=== PATIENT | male | born 1950 | race Caucasian/White ===

== ENCOUNTER 2017-03-08 08:10 | Outpatient (CLI) | payer OTHER ==
[2015-01-04 09:14] VITALS: BP 147/81
[2017-03-08 21:41] LABS: TOTAL PROTEIN 6.8 g/dL (6.0-8.5)
== END 2017-03-08 08:11 ==
LOC: LAB 08:10
PROVIDERS: ATTEND Family Medicine
DX: Z11.59 Encounter for screening for other viral diseases (principal); E11.9 Type 2 diabetes mellitus without complications
CPT/HCPCS: 36415; 80053; 80061; 82043; 83036; 86803

== ENCOUNTER 2017-06-09 12:50 | Emergency (ER) | payer OTHER ==
[2017-06-09 14:21] VITALS: BP 130/68
--- NOTE | 2017-06-09 14:23 | ED Physician Documentation ---
Lower Extremity Problem - HISTORIAN Historian: patient - HPI Stated Complaint: Left Foot Pain Chief Complaint: Lower Extremity Problem Location of Injury: R foot Timing: worse Further Comments: yes (66 year old male patient presents with right foot pain. States he has a callus that has cracked. Reports previous hospitalization for staph infection in foot.) - ROS CONST: no problems MS/SKIN/LYMPH: none CVS/RESP: none GI/: none EYES/ENT: none NERUO/PSYCH: denies: headache - PAST HX Past History: none PE Risk Factors: hypertension Other History: diabetes Type 2 Allergies/Adverse Reactions: Allergies Allergy/AdvReac Type Severity Reaction Status Date / Time No Known Drug Allergies Allergy Verified 01/03/15 08:03 Home Medications: Ambulatory Orders Medication Instructions Recorded Diclofenac Sodium [Voltaren] 50 mg PO DAILY 06/09/17 Doxycycline Monohydrate 100 mg PO BID #20 tablet 06/09/17 Mupirocin [Bactroban] 1 appl TP BID #1 tube 06/09/17 - SOCIAL HX Smoking History: non-smoker - FAMILY HX Family History: denies: none - VITAL SIGNS Vital Signs: Vital Signs Temp Pulse Resp BP Pulse Ox 98.1 F 70 18 130/68 96 06/09/17 12:50 06/09/17 14:20 06/09/17 14:20 06/09/17 14:20 06/09/17 14:20 - REVIEWED ASSESSMENTS Nursing Assessment Reviewed: Yes Vitals Reviewed: Yes Progress - Progress Progress: Right foot with nail thickening noted. No warmth to palpation of edematous area of right foot; patient denies history of gout. Does not see the circuit walker. No micro reports from previous hospitalization. Reviewed xray results with patient. Will start doxycycline po bid and bactroban ointment. Referral to Dr Causey. Will not use bactrim DS as patient is on lisinopril. Strongly encouraged close follow up with PCP due to history. ED Results Lab/Radiology - Lab Results Lab Results: Lab Results 06/09/17 13:20 Uric Acid 4.5 mg/dL mg/dL (3.5-8.5) - Radiology Radiology Impressions: Examination: Plain film foot History: Discomfort Findings: 3 views of the foot demonstrates generalized osteopenia. Articular degenerative changes. Undersurface of the 5th metatarsal demonstrates some cortical thickening. No fracture line. Inferior posterior calcaneal spurs. No gross soft tissue abnormality. No soft tissue foreign body. Impression: Osteopenia. Degenerative changes. Cortical thickening 5th metatarsal. No acute appearing fracture. If there is suspicion for osteomyelitis , can be further assessed with MRI if clinically warranted. Electronically signed on Jun 09, 2017 1:48:58 PM CDT by: Primitivo Dumont - Orders Orders: ED Orders Category Date Time Status FOOT 3 VIEWS OR MORE [RAD] Stat Exams 06/09/17 Ordered URIC ACID Stat Lab 06/09/17 13:20 Completed Lower Extremity Problem - EXAM General Appearance: mild distress Legs: bilateral: non-tender, normal inspection, normal range of motion, no evidence of injury Ankle: bilateral: non-tender, normal inspection, normal range of motion, no evidence of injury Foot: right foot: bone tenderness, deformity (Right 5th metatarsophalangeal joint with edema, ecchymosis noted on planter aspect of foot), swelling ( lateral foot, distal 5th metatarsal area), other (Serous drainage for 3mm laceration, dorsal aspect of right 5th metatarsophalangeal joint. Tender to palpation. ), bilateral foot: normal range of motion Neuro/Tendon: normal sensation, normal motor functions, normal tendon functions , no evidence tendon injury EENT: eye inspection normal, JOANNE RESPIRATORY: no resp distress CVS: reg rate & rhythm JOINT: nml ROM, painful (to bear weight on right foot) VASCULAR: no vascular compromise, pulses full/equal NEURO/PSYCH: oriented X3, motor nml, sensation nml, mood/affect nml SKIN: warm/dry, normal color Discharge Clincal Impression: Callus Cellulitis Qualifiers: Site of cellulitis: other site Qualified Code(s): L03.818 - Cellulitis of other sites Prescriptions: Doxycycline Monohydrate 100 mg PO BID #20 tablet Mupirocin [Bactroban] 1 appl TP BID #1 tube Referrals: Pa Watts MD [Primary Care Provider] - 2 Days Additional Instructions: To remove your dressing, gently pull it off. If needed, you can dampen it with water then gently pull it off. Clean the wound twice a day with hibiclens and rinse with water clean away any scabbed area Apply thin coat of antibiotic ointment after cleaning the wound. Cover with non-adherent bandage if able. Follow up with your primary care doctor for a wound recheck on Sunday Recommend podiatry - Dr. Causey is at [facility] on Jun 19 Condition: Stable Disposition: HOME, SELF-CARE Decision to Admit: NO Decision Time: 14:15
--- NOTE | 2017-06-09 18:51 | Diagnostic Imaging Report ---
PHILLIP PEREIRA (BISHOP) - ER [facility] [address] [address] Report Submission Date: Jun 09, 2017 1:48:58 PM CDT Patient Study Name: PARVEZ TOLENTINO Date: Jun 09, 2017 1:29:29 PM CDT Modality Type: CR Gender: M Description: LOWER EXTREMITY : 54 Institution: [facility] Physician: PHILLIP PEREIRA (BISHOP) - ER Examination: Plain film foot History: Discomfort Findings: 3 views of the foot demonstrates generalized osteopenia. Articular degenerative changes. Undersurface of the 5th metatarsal demonstrates some cortical thickening. No fracture line. Inferior posterior calcaneal spurs. No gross soft tissue abnormality. No soft tissue foreign body. Impression: Osteopenia. Degenerative changes. Cortical thickening 5th metatarsal. No acute appearing fracture. If there is suspicion for osteomyelitis , can be further assessed with MRI if clinically warranted. Electronically signed on Jun 09, 2017 1:48:58 PM CDT by: Primitivo OCHOA
== END 2017-06-09 14:20 | disposition home or self-care (01) ==
LOC: ED 12:50
DX: L03.818 Cellulitis of other sites (principal); L84 Corns and callosities
CPT/HCPCS: 73630; 84550; 99283

== ENCOUNTER 2017-07-10 14:15 | Outpatient (CLI) | payer OTHER | END 2017-07-10 14:16 | LOC: POD 14:15 | PROVIDERS: ATTEND Podiatrist | DX: E11.42 Type 2 diabetes mellitus with diabetic polyneuropathy (principal); B35.1 Tinea unguium; L89.891 Pressure ulcer of other site, stage 1 | CPT/HCPCS: 99213 ==

== ENCOUNTER 2017-10-09 13:26 | Outpatient (CLI) | payer MEDICARE, OTHER | END 2017-10-09 13:27 | LOC: POD 13:26 | PROVIDERS: ATTEND Podiatrist | DX: B35.1 Tinea unguium (principal); M79.674 Pain in right toe(s); M79.675 Pain in left toe(s) | CPT/HCPCS: 11721; G0463 ==

== ENCOUNTER 2018-01-01 13:33 | Outpatient (CLI) | payer MEDICARE, OTHER | END 2018-01-01 13:34 | LOC: POD 13:33 | PROVIDERS: ATTEND Podiatrist | DX: B35.1 Tinea unguium (principal); M79.674 Pain in right toe(s); M79.675 Pain in left toe(s) | CPT/HCPCS: 11721; G0463 ==

== ENCOUNTER 2018-04-12 13:24 | Outpatient (CLI) | payer MEDICARE, OTHER | END 2018-04-12 13:25 | LOC: POD 13:24 | PROVIDERS: ATTEND Podiatrist | DX: B35.1 Tinea unguium (principal); M79.674 Pain in right toe(s); M79.675 Pain in left toe(s) | CPT/HCPCS: 11721; G0463 ==

== ENCOUNTER 2018-06-19 08:37 | Outpatient (CLI) | payer MEDICARE, OTHER ==
[2018-06-19 10:32] LABS: eGFR (Non-African) > 60
== END 2018-06-19 08:40 ==
LOC: LAB 08:37
PROVIDERS: ATTEND Family Medicine
DX: E11.9 Type 2 diabetes mellitus without complications (principal); E78.00 Pure hypercholesterolemia, unspecified
CPT/HCPCS: 36415; 80053; 80061; 82043; 83036

== ENCOUNTER 2018-08-31 16:23 | Emergency (ER) | payer MEDICARE, OTHER ==
--- NOTE | 2018-08-31 17:32 | ED Physician Documentation ---
Foot Injury - HISTORIAN Historian: patient - HPI Stated Complaint: right foot redness Chief Complaint: Foot Injury Additional Information: diabetic foot ulcer std w/callous trimmed now infected--[id number]=1.1 onset 2 mo ago after debrided callous. rt lat foot base 5th digit. now surrounding cellulitis Severity: moderate Associated Symptoms:: swelling. denies: numbness distally, snapping sensation, popping sensation, unable to bear weight (works [employer] so on feet all shift) Modifying Factors:: other (pts foot quite wide has callous on lt foot similar in nature but not infected) - ROS CONST: no problems CVS/RESP: none NEURO: denies: headache, head injury MS/SKIN/LYMPH: none - PAST HX Past History: diabetes Type 2, other (htn gerd) Immunizations: UTD Allergies/Adverse Reactions: Allergies Allergy/AdvReac Type Severity Reaction Status Date / Time No Known Drug Allergies Allergy Verified 09/03/18 13:02 Home Medications: Ambulatory Orders Medication Instructions Recorded Cephalexin [Keflex] 500 mg PO QID #40 capsule 08/31/18 Mupirocin 2% Oint. [Bactroban] 1 appl TP BID #1 tube 09/03/18 Sulfamethoxazole/Trimethoprim 1 each PO BID #20 tab 09/03/18 [Bactrim Ds] - SOCIAL HX Smoking History: non-smoker Alcohol Use: none Drug Use: none - FAMILY HX Family History: no significant history - VITAL SIGNS Vital Signs: Vital Signs Temp Pulse Resp BP Pulse Ox 98.6 F 92 H 19 146/69 98 08/31/18 16:23 08/31/18 16:23 08/31/18 16:23 08/31/18 16:23 08/31/18 16:23 - REVIEWED ASSESSMENTS Nursing Assessment Reviewed: Yes Vitals Reviewed: Yes Foot Injury Physical Exam - Physical Exam General Appearance: mild distress, moderate distress Gait: limited by pain (slightly) Neuro: sensation nml, motor nml. No: digital nerve deficit Tendons: tendon function nml Leg/Knee/Thigh: uninjured above ankle, soft-tissue tenderness. No: swelling Skin: intact, warm Head/ENT: nml inspection Resp/CVS: chest non-tender, breath sounds nml, heart sounds nml, lungs clear, reg. rate & rhythm Abdomen: non-tender Discharge Clincal Impression: diabetic foot ulcer Prescriptions: Cephalexin [Keflex] 500 mg PO QID #40 capsule Referrals: Pa Watts MD [Primary Care Provider] - 2 Days Comments: to see wound care specialists for f/u Condition: Good Disposition: 01 HOME, SELF-CARE Decision to Admit: NO Decision Time: 17:25
[2018-08-31 17:33] VITALS: BP 154/71
== END 2018-08-31 17:31 | disposition home or self-care (01) ==
LOC: ED 16:23
DX: E11.621 Type 2 diabetes mellitus with foot ulcer (principal); L97.519 Non-pressure chronic ulcer of other part of right foot with unspecified severity
CPT/HCPCS: 99281; 99282

== ENCOUNTER 2018-09-03 12:29 | Emergency (ER) | payer MEDICARE, OTHER ==
[2018-09-03 13:01] VITALS: BP 118/76
--- NOTE | 2018-09-03 13:07 | ED Physician Documentation ---
General Adult - HISTORIAN Historian: patient - HPI Stated Complaint: Foot pain Chief Complaint: General Adult Further Comments: yes (67 year old male patient presents with complaint of worsening foot wound and redness going up right leg. Patient was seen in ER Sunday and started on Keflex. He was instructed to cleanse with betadine and keep covered. Patient orginally had nails trimmed and callus trimmed on 07/[address] Hickman in the clinic.) - ROS CONST: no problems EYES/ENT: none CVS/RESP: none GI/: none MS/SKIN/LYMPH: none - PAST HX Past History: other (Previous wound to right 2nd toe - deformity) Other History: diabetes Type 2 Allergies/Adverse Reactions: Allergies Allergy/AdvReac Type Severity Reaction Status Date / Time No Known Drug Allergies Allergy Verified 09/03/18 13:02 Home Medications: Ambulatory Orders Medication Instructions Recorded Cephalexin [Keflex] 500 mg PO QID #40 capsule 08/31/18 Mupirocin [Bactroban] 1 appl TP BID #1 tube 09/03/18 Sulfamethoxazole/Trimethoprim 1 each PO BID #20 tab 09/03/18 [Bactrim Ds] - SOCIAL HX Smoking History: non-smoker - FAMILY HX Family History: No - VITAL SIGNS Vital Signs: Vital Signs Temp Pulse Resp BP Pulse Ox 79 15 118/76 95 09/03/18 12:30 09/03/18 12:30 09/03/18 12:30 09/03/18 12:30 - REVIEWED ASSESSMENTS Nursing Assessment Reviewed: Yes Vitals Reviewed: Yes Progress - Progress Progress: Cleaned wound and foot with chlorhexidine and water; callus area with flaking a nd peeling. No pain with cleaning or wound care. Shaved area of peeling with scissors and #11 blade. No bleeding. Triple antibiotic ointment applied. Bulky dressing and coban applied. Reviewed wound care instructions with patient; encouraged padding area. Stop using betadine ointment - as it is caustic to healing skin. Will change keflex to bactrim DS. No history of MRSA. Call to [facility] to make follow up appointment for patient. No scheduling available on holiday. Strongly encouraged close follow up. General Adult Physical Exam - PHYSICAL EXAM GENERAL APPEARANCE: mild distress EENT: eye inspection normal, JOANNE RESPIRATORY: no resp distress CVS: reg rate & rhythm SKIN: warm/dry, normal color, other (Right lateral foot with yellow stained callus and wound area; erythmea and hyperthermai noted across dorsal aspect of right foot. No erythemia noted on leg. ) NEURO: oriented X3 Discharge Clincal Impression: Chronic wound right foot, Callus, Cellulitis of foot Prescriptions: Mupirocin [Bactroban] 1 appl TP BID #1 tube Sulfamethoxazole/Trimethoprim [Bactrim Ds] 1 each PO BID #20 tab Referrals: Pa Watts MD [Primary Care Provider] - 2 Days Additional Instructions: Clean the wound twice a day with hibiclens and rinse with water clean away any scabbed area Apply thin coat of antibiotic ointment after cleaning the wound. Cover with non-adherent bandage if able. Pad area as much as possible to reduce pressure. STOP the cephalexin and betadine START new antibiotic and new antibiotic ointment. Make a follow up appointment to see Dr Causey this week. Return to Er if the wound becomes worse, redness spreads up your leg or the pain becomes worse. Condition: Stable Disposition: 01 HOME, SELF-CARE Decision to Admit: NO Decision Time: 13:07
== END 2018-09-03 13:14 | disposition home or self-care (01) ==
LOC: ED 12:29
DX: S91.301A Unspecified open wound, right foot, initial encounter (principal); L03.115 Cellulitis of right lower limb; L84 Corns and callosities
CPT/HCPCS: 97597; 99282

== ENCOUNTER 2019-08-13 00:21 | Inpatient (IN) | payer MEDICARE, OTHER ==
[2019-08-13] MEDS ORDERED: ASPIRIN 81 MG CHEW TAB PO ONE (00:35)
[2019-08-13] MEDS ORDERED: FUROSEMIDE 40 MG/4 ML VIAL IVP ONE (00:37)
[2019-08-13] MEDS ORDERED: NITROGLYCERIN 0.4 MG TAB.SUBL SL ONE (00:45)
--- NOTE | 2019-08-13 00:47 | ED Physician Documentation ---
General Adult - HISTORIAN Historian: patient - HPI Chief Complaint: Dyspnea Additional Information: Patient states that over the last several days he has been having some increasing cough productive of some clear phlegm, no blood noted. Patient denies any increase swelling in his legs but has had some. Patient has had some dyspnea with laying down tonight. This evening he awoke being acutely more SOB, and wheezing some. He has no history of CHF, CAD, or DVT/PE. He does have a history of DM type 2 and HTN. He has not been checking his blood sugars or BP at home. Onset: days ago Timing: still present Severity: moderate - ROS CONST: no problems. denies: fever, chills CVS/RESP: shortness of breath, cough. denies: chest pain GI/: none, other (chronic GERD) - PAST HX Past History: hypertension, other (GERD) Other History: diabetes Type 2 Surgeries/Procedures: cholecystectomy, other (tonsillectomy, s/p Lumbar fusion,) Immunizations: influenza, pneumovax Allergies/Adverse Reactions: Allergies Allergy/AdvReac Type Severity Reaction Status Date / Time No Known Drug Allergies Allergy Verified 08/13/19 00:48 - SOCIAL HX Smoking History: non-smoker, quit greater than 1 year Alcohol Use: none Drug Use: none - FAMILY HX Family History: Yes (CAD) - VITAL SIGNS Vital Signs: Vital Signs Temp Pulse Resp BP Pulse Ox 118/76 09/03/18 13:14 - REVIEWED ASSESSMENTS Nursing Assessment Reviewed: Yes Progress - Progress Progress: 0115 Patient is starting to breath easier, BP 152/94, P 107 Still having some rales bilaterally - EKG/XRAY/CT Comments: Tachy sinus rhythm, Frequent PVCs, no acute ischemic changes noted. ED Results Lab/Radiology - Radiology Radiology Impressions: CXR mild cardiomegaly, pulmonary vascular congestion consistent with CHF. - Orders Orders: ED Orders Category Date Time Status CHEST 1VIEW [RAD] Routine Exams 08/13/19 00:29 Ordered General Adult Physical Exam - PHYSICAL EXAM GENERAL APPEARANCE: severe distress EENT: ENT inspection normal NECK: normal inspection, thyroid normal, supple. No: lymphadenopathy RESPIRATORY: wheezes, rales CVS: reg rate & rhythm (tach), heart sounds normal ABDOMEN: soft, normal bowel sounds, non-tender SKIN: warm/dry, normal color EXTREMITIES: edema NEURO: oriented X3, CN's nml as tested, cognition normal Discharge Clincal Impression: Congestive heart failure Qualifiers: Heart failure type: unspecified Heart failure chronicity: acute Qualified Code(s): I50.9 - Heart failure, unspecified Referrals: Pa Watts MD [Primary Care Provider] - 2 Days Condition: Stable Disposition: ADMITTED INPATIENT Decision to Admit: [id number] Date of Decison to Admit: 08/13/19 Decision Time: 01:15
--- NOTE | 2019-08-13 00:53 | Diagnostic Imaging Report ---
PATIENT MR#: [id number] PATIENT PATIENT NAME: PARVEZ TOLENTINO DATE OF : 1950 REFERRING PHYSICIAN: Pa Watts EXAM DATE: 08/13/2019 ACCESSION NUMBER: [id number] EXAM DESCRIPTION: CHEST 1VIEW Portable chest Clinical history: Shortness of breath. Cough. Findings: Examination of the chest in single portable AP view with no prior films for comparison dem onstrates pulmonary vascular congestion with small right effusion. Cardiac silhouette is prominent and the aorta is athe rosclerotic. Impression: 1. Congestive heart failure. Read by: Dr. Dominic Payne Transcribed by: Transcribed Date: Electronically signed by: Dr. Dominic Payne Date signed: 08/13/2019 12:52:50 AM
--- NOTE | 2019-08-13 01:41 | History and Physical Report ---
History of Present Illnes - History of Present Illness Reason for Visit: dyspnea, CHF History of Present Illness: 68yo Patient who states that over the last several days he has been having some increasing cough productive of some clear phlegm, no blood noted. Patient denies any increase swelling in his legs but has been at baseline. Patient has had some dyspnea with laying down tonight. This evening he awoke being acutely more SOB, and wheezing some. Patient denies any chest pain or discomfort. Patient came to the ED, was noted to have some pulmonary congestion on chest x-ray and an elevated BNP. Patient has a history of HTN and diabetes. Patient admitted for further evaluation and treatment - Past Medical History Cardiac: HTN, Hyperlipidemia Pulmonary: denies: Pulmonary embolus Gastrointestinal: GERD Renal/: Other (ED) Endocrine: Diabetes (type 2) - Past Surgical History Past Surgical History: Cholecystectomy, Tonsillectomy, Other (lumbr fusion) - Past Family History Mother Family History: CAD, DM, (90yo) Father Family History: (57yo), Other (COPD) - Past Social History Smoke: Quit (1987) Alcohol: None Drugs: None Lives: With Family - Health Maintenance Health Maintenance: Cholesterol, Tetanus (03), Influenza Vaccine (13), Pneumococcal Vaccine (05), Other (Hep B ) Influenza Vaccine: Current for this Influenza Season Pneumonia Vaccine: Yes - Unable to Obtain History Unable to Obtain: No Review of Systems - Review of Systems Constitutional: negative: Fever, Chills Eyes: negative: pain, vision change, redness ENT: negative: Ear Pain, Ear Discharge, Nose Pain, Nose Discharge, Nose Congestion, Mouth Pain, Throat Swelling Respiratory: Cough, Shortness of Breath, SOB with Excertion, Sputum, Wheezing. negative: Hemoptysis Cardiovascular: Other (edema). negative: Chest Pain, Palpitations, Orthopnea, Paroxysmal Noc. Dyspnea, Edema, Light Headedness Gastrointestinal: negative: Nausea, Vomiting, Abdominal Pain, Diarrhea, Constipation, Melena, Hematochezia Genitourinary: negative: Dysuria, Frequency Musculoskeletal: negative: Neck Pain, Shoulder Pain, Arm Pain Skin: negative: Rash Neurological: negative: Weakness, Numbness, Incoordination, Change in Speech - Medications/Allergies Allergies/Adverse Reactions: Allergies Allergy/AdvReac Type Severity Reaction Status Date / Time No Known Drug Allergies Allergy Verified 08/13/19 00:48 Exam - Exam Vital Signs: Vital Signs (72 hours) 08/13/19 08/13/19 08/13/19 00:35 00:48 01:02 Pulse Rate 95 H 94 H Pulse Rate [ 132 H Left Pulse ox] Respiratory 30 H Rate Blood Pressure 226/133 [Right Arm] O2 Sat by Pulse 99 86 L 99 Oximetry 08/13/19 08/13/19 01:03 01:30 Pulse Rate 94 H Pulse Rate [ 85 Left Pulse ox] Respiratory 23 Rate Blood Pressure 157/94 [Right Arm] O2 Sat by Pulse 99 99 Oximetry General: Alert, Oriented to Person, Oriented to Place, Oriented to Time, Cooperative, Moderate distress, Obese HEENT: Atraumatic, PERRLA, EOMI, Mouth Mucous membr. moist/[place], Nose Mucous membr. moist/[place] Neck: Normal Range of Motion Carotids: WNL Thyroid: WNL Lungs: Clear to auscultation, Normal air movement, Speaks full Sentences Cardiovascular: Regular rate, Normal S1, Normal S2, No murmurs Abdomen: Normal bowel sounds, Soft, No tenderness, No hepatospenomegaly, No mass es Integumentary: Normal, [place], Warm, Dry Extremities: No clubbing, No cyanosis, Normal pulses, No tenderness/swelling, Other (edema 2 plus) Neurological: Normal gait, Normal speech, Strength Equal Bilat, Normal tone, Sensation intact, Cranial nerves 3-12 NL, Reflexes 2+ Psych/Mental Status: Mental status NL, Mood NL, Appropriate Affect, Intact Judgment Assessment/Plan - Assessment/Plan (1) Congestive heart failure Status: Acute Current Visit: Yes Qualifiers: Heart failure type: unspecified Heart failure chronicity: acute Qualified Code(s): I50.9 - Heart failure, unspecified Assessment: IV lasix, monitor oxygen needs, electrolytes. Will get ECHO. Serial cardiac enzymes. (2) Essential hypertension Status: Chronic Current Visit: Yes Assessment: continue home med (3) Diabetes type 2, controlled Status: Chronic Current Visit: Yes Qualifiers: Diabetes mellitus salvage determiner insulin use: without salvage determiner use Diabetes mellitus complication status: without complication Qualified Code(s): E11.9 - Type 2 diabetes mellitus without complications Assessment: stable, continue home meds (4) GERD (gastroesophageal reflux disease) Status: Chronic Current Visit: Yes Assessment: continue home meds VTE Assessment - RISK FACTOR SCORE VTE RISK FACTOR SCORES: AGE OVER 60 YEARS, CONGESTIVE HEART FAILURE OR MYOCARDIAL INFARCTION - RISK VTE MODERATE RISK: SCORE OF 2 (RISK PROXIMAL DVT 2-4%) PROPHYAXIS NEEDED
[2019-08-13] MEDS ORDERED: traMADol HCL 50 MG TABLET PO PRN (01:45)
[2019-08-13 02:19] VITALS: BMI 73.0
[2019-08-13] MEDS: PANTOPRAZOLE SODIUM 40 MG TABLET.DR PO SCH (05:56)
[2019-08-13] MEDS: FUROSEMIDE 40 MG/4 ML VIAL IVP SCH ×2 (05:56→14:03)
[2019-08-13 06:19] LABS: OCCULT BLOOD,URINE TRACE (NEGATIVE); UROBILINOGEN URINE 0.2 Eu (0.2-1.0)
[2019-08-13 06:41] LABS: BASOPHILS % 0.7 % (0.0-1.5); NEUTROPHILS # 3.4 # k/uL (1.4-7.7)
[2019-08-13 06:42] LABS: eGFR (Non-African) > 60
[2019-08-13] MEDS: ENOXAPARIN SODIUM 30 MG/0.3 ML DISP.SYRIN SQ SCH (09:04)
[2019-08-13] MEDS: LISINOPRIL 10 MG TABLET PO SCH (09:04)
[2019-08-13] MEDS: metFORMIN HCl 500 MG TABLET PO SCH (09:04)
[2019-08-13] MEDS: SODIUM CHLORIDE 0.9 % (FLUSH) 10 ML DISP.SYRIN IV SCH ×2 (09:05→20:29)
[2019-08-13 14:52] LABS: eGFR (Non-African) > 60
[2019-08-14] MEDS: PANTOPRAZOLE SODIUM 40 MG TABLET.DR PO SCH (06:11)
[2019-08-14] MEDS: FUROSEMIDE 40 MG/4 ML VIAL IVP SCH (06:18)
[2019-08-14 08:16] LABS: eGFR (Non-African) > 60
[2019-08-14] MEDS: metFORMIN HCl 500 MG TABLET PO SCH (09:08)
[2019-08-14] MEDS: LISINOPRIL 10 MG TABLET PO SCH (09:08)
[2019-08-14] MEDS: ENOXAPARIN SODIUM 30 MG/0.3 ML DISP.SYRIN SQ SCH (09:08)
[2019-08-14] MEDS: SODIUM CHLORIDE 0.9 % (FLUSH) 10 ML DISP.SYRIN IV SCH (09:13)
[2019-08-14 09:29] VITALS: BP 117/72
--- NOTE | 2019-08-14 10:28 | Discharge Summary ---
Discharge Summary - Discharge [facility] Admission Date: 08/13/19 (ACUTE) Discharge Date: 08/14/19 (Home) Discharge To: Home History of Present Illness: 68yo Patient who states that over the last several days he has been having some increasing cough productive of some clear phlegm, no blood noted. Patient denies any increase swelling in his legs but has been at baseline. Patient has had some dyspnea with laying down tonight. This evening he awoke being acutely more SOB, and wheezing some. Patient denies any chest pain or discomfort. Patient came to the ED, was noted to have some pulmonary congestion on chest x-ray and an elevated BNP. Patient has a history of HTN and diabetes. Patient admitted for further evaluation and treatment Condition at Discharge: Stable Home Medications: Ambulatory Orders Medication Instructions Recorded Furosemide [Lasix] 20 mg PO DAILY #30 tablet 08/14/19 Consultations this Visit: None Procedures this Visit: None Allergies/Adverse Reactions: Allergies Allergy/AdvReac Type Severity Reaction Status Date / Time No Known Drug Allergies Allergy Verified 08/13/19 00:48 Discharge Summary: On admission from the emergency room patient BNP was noted to be elevated at 1711.3. Chest x-ray was consistent with some mild cardiomegaly and pulmonary congestion. Patient troponin was initially normal. Patient presented to the emergency room with a markedly elevated blood pressure of 226/133.patient with make. Patient was given IV Lasix with good diuresis. Once patient breathing improved to 117/85 within an hour. Patient was continued on IV Lasix. He was able to be weaned off of supplemental oxygen. patient subsequent troponin came back and 0.686. At the time to discharge it was 0259. EKG remain stable without any evidence of ischemic changes.. Gary that the elevated troponin [place] been related to his markedly elevated blood pressure prior to admission. Patient denies having any chest pain chest pressure. Patient diabetes remain stable during the hospitalization with blood sugars running in the low 100 range. Patient blood pressure where running in the 95-115/70s range at the time of dismissal. At the time of dismissal patient with is vied that he would need to follow up with manager statistical programming for echocardiogram and further evaluation and possible cardiac catheterization. - Final Diagnosis (1) Congestive heart failure Problems: improved (2) Essential hypertension Problems: stable (3) Diabetes type 2, controlled Problems: stable (4) GERD (gastroesophageal reflux disease) Problems: stable
== END 2019-08-14 12:35 | disposition home or self-care (01) | DRG 293 ==
LOC: ED 00:21 → SOUTH 01:29
PROVIDERS: ADMIT Family Medicine; ATTEND Family Medicine
DX: I11.0 Hypertensive heart disease with heart failure (principal); I50.9 Heart failure, unspecified; E11.9 Type 2 diabetes mellitus without complications; K21.9 Gastro-esophageal reflux disease without esophagitis; E78.5 Hyperlipidemia, unspecified; E66.9 Obesity, unspecified; Z90.49 Acquired absence of other specified parts of digestive tract; Z98.1 Arthrodesis status; Z90.89 Acquired absence of other organs; Z68.32 Body mass index [BMI] 32.0-32.9, adult; Z79.899 Other long term (current) drug therapy; Z79.84 Long term (current) use of oral hypoglycemic drugs
CPT/HCPCS: 36415; 80048; 80053; 81002; 82550; 83880; 84484; 85025; 85379; 93005; 99222; 99238; J1650; J1940; S1016

== ENCOUNTER → 2019-09-05 | Outpatient (CLI) | payer MEDICARE, OTHER ==
[2019-08-14 09:29] VITALS: BP 117/72
[2019-09-05 09:01] LABS: BASOPHILS % 0.6 % (0.0-1.5); NEUTROPHILS # 3.9 # k/uL (1.4-7.7)
[2019-09-05 09:45] LABS: eGFR (Non-African) > 60
== END ==
LOC: LAB 08:27
PROVIDERS: ATTEND Internal Medicine
DX: I50.9 Heart failure, unspecified (principal)
CPT/HCPCS: 36415; 80053; 83880; 84443; 85025